=== PATIENT | male | born 1995 | race Two or more races ===

== ENCOUNTER 2019-09-05 07:44 | Emergency (ER) | payer OTHER ==
[~2019-09-05] VITALS: Ht 172.7 cm; Wt 101.0 kg
--- NOTE | 2019-09-05 08:02 | NUR ---
pt ambulated back to room with a smooth and steady gait, resting on gurney, NAD, VSS, RESP WNL, call light on lap, FCS no SOB noted, WCTM. Richie PHAM at BS for eval and to discuss POC. Waiting for rads.
[2019-09-05 08:49] VITALS: BP 135/83
--- NOTE | 2019-09-05 08:50 | NUR ---
Patient/Caregiver given discharge instructions and they have confirmed that they understand the instructions. Patient ambulatory with steady gait. Denies additional questions at this time. Confirms he will self isolate. Informed of online grocery shopping options.
== END 2019-09-05 08:52 | disposition home or self-care (01) ==
LOC: ED 08:03
DX: B34.9 Viral infection, unspecified (principal); R05 Cough; M79.10 Myalgia, unspecified site
CPT/HCPCS: 71045; 99283